=== PATIENT | female | born 2000 | race Caucasian/White ===

== ENCOUNTER 2020-05-02 13:23 | Emergency (ER) | payer OTHER, BC ==
--- NOTE | 2020-05-02 14:56 | CR ---
PROCEDURE INFORMATION: Exam: XR Right Wrist Exam date and time: 05/02/2020 2:42 PM Age: 19 years old Clinical indication: Other: Pain and swelling TECHNIQUE: Imaging protocol: XR Right wrist. Views: 3 or more views. COMPARISON: No relevant prior studies available. FINDINGS: Bones/joints: Multiple views of the right wrist demonstrate no evidence for fracture. There is normal mineralization and alignment. Soft tissues: Normal. IMPRESSION: 1. Normal appearance of the right wrist. No acute osseous injury present.
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
== END 2020-05-02 15:47 | disposition home or self-care (01) ==
LOC: DL.ED 13:23
DX: S63.501A Unspecified sprain of right wrist, initial encounter (principal); M79.631 Pain in right forearm; V49.9XXA Car occupant (driver) (passenger) injured in unspecified traffic accident, initial encounter
CPT/HCPCS: 29125; 73110-RT; 99282; 99284-25

== ENCOUNTER 2021-07-20 11:37 | Emergency (ER) | payer BC, OTHER | END 2021-07-20 12:38 | disposition home or self-care (01) | LOC: DL.ED 11:37 | DX: S06.0X0A Concussion without loss of consciousness, initial encounter (principal); S63.502A Unspecified sprain of left wrist, initial encounter; W18.09XA Striking against other object with subsequent fall, initial encounter | CPT/HCPCS: 73130-LT; 99283; 99283-25 ==

== ENCOUNTER 2022-06-16 10:22 | Emergency (ER) | payer OTHER, BC ==
[2022-06-16] MEDS: Orphenadrine 60 MG/2 ML Inj IM ONE ×2 (10:55→10:58)
== END 2022-06-16 11:59 | disposition home or self-care (01) ==
LOC: DL.ED 10:22
DX: S16.1XXA Strain of muscle, fascia and tendon at neck level, initial encounter (principal); S39.012A Strain of muscle, fascia and tendon of lower back, initial encounter; V89.2XXA Person injured in unspecified motor-vehicle accident, traffic, initial encounter; Y92.410 Unspecified street and highway as the place of occurrence of the external cause
CPT/HCPCS: 72100; 72125; 99282; 99283; J2360